=== PATIENT | male | born 1995 | race Caucasian/White ===

== ENCOUNTER 2017-07-15 20:14 | Emergency (ER) | payer OTHER ==
[~2017-07-15] VITALS: Ht 193 cm; Wt 70.0 kg
[2017-07-15 20:32] VITALS: BP 149/74; PULSE 81; RESP 16; TEMP 99.4; O2SAT 99
--- NOTE | 2017-07-15 22:24 | PD ---
HPI Chief Complaint: Oral / Dental Pain or Problem Time Seen by Provider: 22:13 Travel History International Travel<30 days: No Contact w/Intl Traveler<30days: No Traveled to known affect area: No History of Present Illness HPI 22-year-old male complains of painful mouth ulcers. Patient states that symptoms started 3 months ago. Patient has been seen by personal physician and area supervisor. Patient states that he was given prescription for Valtrex and oral solution and pain medication and steroid in the past. Patient states that he has persistent painful ulcers despite the medications. Patient denies any fever chills. Patient denies any other problem. PFSH Social History Tobacco Use: No Allergies-Medications (Allergen,Severity, Reaction): Coded Allergies: diphenhydramine (Verified Allergy, Unknown, 07/15/17) morphine (Verified Allergy, Unknown, 07/15/17) Review of Systems General / Constitutional: No: Fever Eyes: No: Visual changes HENT: No: Headaches Cardiovascular: No: Chest Pain or Discomfort Respiratory: No: Shortness of Breath Gastrointestinal: No: Abdominal Pain Genitourinary: No: Dysuria Musculoskeletal: No: Pain Skin: No Rash Neurologic: No: Weakness Psychiatric: No: Depression Endocrine: No: Polydipsia Hematologic/Lymphatic: No: Easy Bruising Physical Exam Narrative GENERAL: Well-nourished, well-developed patient. SKIN: Focused skin assessment warm/dry. HEAD: Normocephalic. EYES: No scleral icterus. No injection or drainage. NECK: Supple, trachea midline. No JVD or lymphadenopathy. CARDIOVASCULAR: Regular rate and rhythm without murmurs, gallops, or rubs. RESPIRATORY: Breath sounds equal bilaterally. No accessory muscle use. GASTROINTESTINAL: Abdomen soft, non-tender, nondistended. MUSCULOSKELETAL: No cyanosis, or edema. BACK: Nontender without obvious deformity. No CVA tenderness. Examination of the mouth show diffuse ulcer lesions on the lips and gum and tongue. No active bleeding. Data Data Last Documented VS Vital Signs Date Time Temp Pulse Resp B/P (MAP) Pulse Ox O2 Delivery O2 Flow Rate FiO2 07/15/17 20:32 99.4 81 16 149/74 (99) 99 Orders Orders Ed Discharge Order (07/15/17 22:24) MDM Medical Decision Making Medical Screen Exam Complete: Yes Emergency Medical Condition: Yes Differential Diagnosis Differential diagnosis including gingivostomatitis, oral herpes, herpangina. Narrative Course 22-year-old male with painful ulcer lesions in the mouth, gums, tongue. Symptoms started 3 months ago. Patient has been seen by general practitioner and area supervisor. Patient states that she was given prescription for steroid, oral solution and wound check in the past without much relief. Diagnosis Primary Impression: Gingivostomatitis Patient Instructions: General Instructions Additional Instructions: Patient refused prescription for Magic mouthwash and Mobic and acyclovir. Patient wants to leave. Disposition: 01 DISCHARGE HOME Condition: Stable Yung Chaudhari MD Jul 15, 2017 22:24
== END 2017-07-15 22:39 | disposition home or self-care (01) ==
LOC: NEPD 20:14
DX: K05.10 Chronic gingivitis, plaque induced (principal); Z88.5 Allergy status to narcotic agent; Z88.8 Allergy status to other drugs, medicaments and biological substances
CPT/HCPCS: 99281